=== PATIENT | male | born 1990 | race Caucasian/White ===

== ENCOUNTER 2017-02-22 05:39 | Emergency (ER) | payer MEDICAID ==
--- NOTE | 2017-02-22 06:01 | C.PDOC ---
History Of Present Illness 26M c/o "scratchy throat," cough, headache since yesterday. he took tylenol PM last night without relief. denies any etoh or drug use. no fever. Time Seen by Provider: 02/22/17 05:44 Chief Complaint (Nursing): Headache Past Medical History Vital Signs: Last Vital Signs Temp 98.5 F 02/22/17 07:00 Pulse 119 H 02/22/17 07:00 Resp 18 02/22/17 07:00 BP 140/91 H 02/22/17 07:00 Pulse Ox 99 02/22/17 07:00 - Medical History PMH: Denies: Diabetes, Hepatitis, HIV, HTN, Seizures, Sexually Transmitted Disease Family History: States: Other Other Family History: nc - Social History Hx Tobacco Use: Yes Hx Alcohol Use: No Hx Substance Use: No - Immunization History Hx Tetanus Toxoid Vaccination: No Hx Influenza Vaccination: No Hx Pneumococcal Vaccination: No Review Of Systems Constitutional: Negative for: Fever Cardiovascular: Negative for: Chest Pain Respiratory: Positive for: Cough. Negative for: Shortness of Breath, Hemoptysis Gastrointestinal: Negative for: Nausea, Vomiting, Abdominal Pain Neurological: Positive for: Headache. Negative for: Weakness, Numbness, Altered Mental Status Physical Exam - Physical Exam Appears: Well, Non-toxic, No Acute Distress Skin: Warm, Dry, No Diaphoretic, No Pale, No Jaundice Head: Atraumatic Eye(s): bilateral: PERRL Nose: No Epistaxis Oral Mucosa: Moist Tongue: No Swelling, No Lesions Lips: No Swelling, No Lesions Throat: Erythema, No Exudate, No Drooling, Other (uvula midline. ) Neck: Normal ROM, Supple Cardiovascular: Rhythm Regular Respiratory: Normal Breath Sounds, No Decreased Breath Sounds, No Accessory Muscle Use, No Rales, No Rhonchi, No Stridor, No Wheezing Neurological/Psych: Oriented x3, Normal Cranial Nerves, Normal Motor, Normal Sensation, Other (no focal deficits) Gait: Steady ED Course And Treatment O2 Sat by Pulse Oximetry: 97 Medical Decision Making Medical Decision Making: suggested cxr for cough but pt refused. he also refused the rapid strep. 655am IVF not yet finished. pt requesting to be discharged. Disposition - Disposition Referrals: José Luis Weller MD [Medical Doctor] - Disposition: HOME/ ROUTINE Disposition Time: 06:55 Condition: SERIOUS Prescriptions: Naproxen [Naprosyn] 500 mg PO Q12H PRN #10 tablet PRN Reason: Pain, Moderate (4-7) Forms: General Discharge Instructions - Clinical Impression Clinical Impression: Viral syndrome
[2017-02-22] MEDS ORDERED: DiphenhydrAMINE 50 mg/ml Inj IVP STA (06:26)
[2017-02-22] MEDS ORDERED: Sodium Chloride 0.9% 1,000 ML IV ONE (06:26)
[2017-02-22] MEDS ORDERED: DiphenhydrAMINE 50 mg/ml Inj ONE ×2 (06:38→06:40)
[2017-02-22 07:01] VITALS: BP 140/91; PULSE 119; RESP 18; TEMP 98.5
[2017-02-23 18:47] VITALS: O2SAT 97
== END 2017-02-22 07:15 | disposition home or self-care (01) ==
LOC: C.ER 05:39
DX: B34.9 Viral infection, unspecified (principal)
CPT/HCPCS: 96374; 96375; 99284; J1200; J1885; J2765; J7040

== ENCOUNTER 2017-03-06 08:23 | Emergency (ER) | payer MEDICAID ==
[2017-03-06 08:27] VITALS: O2SAT 97
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
[2017-03-06 10:27] VITALS: BP 125/82; PULSE 87; RESP 16; TEMP 98.2
== END 2017-03-06 10:59 | disposition home or self-care (01) ==
LOC: C.ER 08:23
DX: M54.9 Dorsalgia, unspecified (principal); G89.29 Other chronic pain
CPT/HCPCS: 96372; 99284; J1885

== ENCOUNTER 2017-06-26 18:59 | Emergency (ER) | payer MEDICAID ==
[2017-06-26 19:45] VITALS: RESP 24; TEMP 97.6; O2SAT 100
[2017-06-26 20:01] VITALS: BP 156/97; PULSE 122
== END 2017-06-26 20:01 | disposition left against medical advice (07) ==
LOC: C.ER 18:59
DX: Z02.89 Encounter for other administrative examinations (principal); R42 Dizziness and giddiness

== ENCOUNTER 2017-09-06 05:28 | Emergency (ER) | payer MEDICAID ==
[2017-09-06] MEDS ORDERED: Tetanus/Diphtheria Toxoids 0.5 ml Syringe IM ONE (06:21)
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
[2017-09-06 06:44] VITALS: BP 138/70; PULSE 90; RESP 20; TEMP 98
[2017-09-06 06:51] VITALS: O2SAT 98
--- NOTE | 2017-09-06 09:38 | RAD ---
PROCEDURE: Right Thumb radiographs. HISTORY: pain , swelling to right thumb COMPARISON: None. TECHNIQUE: AP radiograph of the right hand, as well as spot oblique and lateral images of thumb were obtained. FINDINGS: RIGHT THUMB: No acute fracture. JOINTS: Unremarkable. SOFT TISSUES: Soft-tissue swelling adjacent to 1st digit. OTHER FINDINGS: None. IMPRESSION: No demonstrated acute fracture or dislocation.
== END 2017-09-06 06:44 | disposition home or self-care (01) ==
LOC: SUPCPDRO 05:28 → C.ER 05:28
DX: S60.221A Contusion of right hand, initial encounter (principal); S60.511A Abrasion of right hand, initial encounter; Y04.0XXA Assault by unarmed brawl or fight, initial encounter

== ENCOUNTER 2017-09-11 22:59 | Emergency (ER) | payer MEDICAID, OTHER ==
[2017-09-11 23:12] VITALS: BP 118/76; PULSE 102; RESP 20; TEMP 97.9; O2SAT 99
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
== END 2017-09-11 23:56 | disposition home or self-care (01) ==
LOC: C.ER 22:59
DX: T14.8XXA Other injury of unspecified body region, initial encounter (principal); V49.9XXA Car occupant (driver) (passenger) injured in unspecified traffic accident, initial encounter

== ENCOUNTER 2018-06-22 00:31 | Emergency (ER) | payer MEDICAID ==
[2018-06-22 00:44] VITALS: RESP 20
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
[2018-06-22 02:24] VITALS: BP 140/82; PULSE 85; TEMP 98.5
[2018-06-22 02:44] VITALS: O2SAT 97
== END 2018-06-22 02:58 | disposition home or self-care (01) ==
LOC: C.ER 00:31
DX: F41.9 Anxiety disorder, unspecified (principal); G47.00 Insomnia, unspecified

== ENCOUNTER 2018-06-25 23:08 | Emergency (ER) | payer MEDICAID | END 2018-06-26 00:06 | disposition left against medical advice (07) | LOC: C.ER 23:08 | DX: Z02.89 Encounter for other administrative examinations (principal); Z00.00 Encounter for general adult medical examination without abnormal findings ==

== ENCOUNTER 2018-06-27 23:55 | Emergency (ER) | payer MEDICAID ==
[2018-06-28] MEDS ORDERED: Sodium Chloride 0.9% 1,000 ML IV ONE (00:48)
--- NOTE | 2018-06-28 00:48 | C.PDOC ---
History Of Present Illness 27 year old male presents to the ED c/o feeling slight dizziness, cough, not feeling well that started today [employer]. Patient states he was at a store and started feeling hot then cold. Patient denies fever, chills, nausea, vomit, abdominal pain, headache, visual changes, injury, fall, trauma. Time Seen by Provider: 06/28/18 00:39 Chief Complaint (Nursing): Dizziness/Lightheaded History Per: Patient History/Exam Limitations: no limitations Onset/Duration Of Symptoms: Hrs Associated Symptoms Preceding Syncopal Episode: No Predromal Symptoms (Sudden Onset) Seizure Or Post-ictal Symptoms: None Fall Associated With With Symptoms: No Severity: None Recent travel outside of the [place]: No Additional History Per: Patient Past Medical History Reviewed: Historical Data, Nursing Documentation, Vital Signs Vital Signs: Last Vital Signs Temp 98.5 F 06/28/18 00:03 Pulse 96 H 06/28/18 00:03 Resp 18 06/28/18 00:03 BP 145/85 06/28/18 00:03 Pulse Ox 99 06/28/18 00:03 - Medical History PMH: Anxiety, Back Problems (chronic back pain) Denies: Diabetes, Hepatitis, HIV, HTN, Chronic Kidney Disease, Seizures, Sexually Transmitted Disease Surgical History: No Surg Hx Family History: States: Unknown Family Hx - Social History Hx Tobacco Use: Yes Hx Alcohol Use: No Hx Substance Use: No - Immunization History Hx Tetanus Toxoid Vaccination: No Hx Influenza Vaccination: No Hx Pneumococcal Vaccination: No Review Of Systems Constitutional: Positive for: Malaise. Negative for: Fever, Chills Eyes: Negative for: Vision Change Cardiovascular: Negative for: Chest Pain Respiratory: Negative for: Cough, Shortness of Breath Gastrointestinal: Negative for: Nausea, Vomiting, Abdominal Pain Skin: Negative for: Rash Neurological: Positive for: Dizziness. Negative for: Weakness, Numbness, Headache Physical Exam - Physical Exam Appears: Non-toxic, No Acute Distress Skin: Warm, Dry Head: Normacephalic Eye(s): bilateral: Normal Inspection Ear(s): Bilateral: Normal Oral Mucosa: Moist Throat: No Erythema, No Exudate Neck: Supple Chest: Symmetrical Cardiovascular: Rhythm Regular Respiratory: No Rales, No Rhonchi, No Wheezing Gastrointestinal/Abdominal: Soft, No Tenderness, No Guarding, No Rebound Extremity: Bilateral: Atraumatic, Normal Color And Temperature, Normal ROM Neurological/Psych: Oriented x3, Normal Speech, Normal Cognition Gait: Steady ED Course And Treatment - Laboratory Results Result Diagrams: 06/28/18 00:57 06/28/18 00:57 O2 Sat by Pulse Oximetry: 99 (On RA) Pulse Ox Interpretation: Normal - Radiology CXR: Interpreted by Me, Viewed By Me CXR Interpretation: No: Infiltrates, Fracture, Pnemothorax Progress Note: Plan: - Labs. - CXR. - IV fluids. - Influenza A B. pt refuses to give urine. Reevaluation Time: 02:28 Reassessment Condition: Improved Medical Decision Making Medical Decision Making: Upon provider reevaluation patient is feeling better, is medically stable, and requires no further treatment in the ED at this time. Patient will be discharged home . Counseling was provided and all questions were answered regarding diagn osis and need for follow up with the referred clinic. There is agreement to discharge plan. Return if symptoms persist or worsen. Disposition Counseled Patient/Family Regarding: Studies Performed, Diagnosis, Need For Followup - Disposition Referrals: at [facility] [Outside] Disposition: HOME/ ROUTINE Disposition Time: 00:48 Condition: FAIR Instructions: Viral Upper Respiratory Infection, Adult (DC) Forms: [employer] (British) - Clinical Impression Clinical Impression: URI (upper respiratory infection) - Scribe Statement The provider has reviewed the documentation as recorded by the Scribe Harpreet Hernández All medical record entries made by the Scribe were at my direction and per sonally dictated by me. I have reviewed the chart and agree that the record accurately reflects my personal performance of the history, physical exam, medical decision making, and the department course for this patient. I have also personally directed, reviewed, and agree with the discharge instructions and disposition.
[2018-06-28 01:00] LABS: BASO # 0.1 K/uL (0.0-0.2); BASO % 0.8 % (0.0-2.0); EOS # 0.1 K/uL (0.0-0.7); EOS % 1.9 % (0.0-4.0); HEMOGLOBIN 12.5 g/dL (12.0-18.0); LYMPH # 1.5 K/uL (1.0-4.3); LYMPH % 20.6 % (20.0-40.0); MEAN CELL VOLUME 93.1 fL (80.0-94.0); MEAN CORPUSCULAR HEMOGLOBIN 32.2 pg (27.0-31.0); MEAN CORPUSCULAR HGB CONC 34.6 g/dL (33.0-37.0); MEAN PLATELET VOLUME 9.2 fL (7.2-11.7); MONO # 0.5 K/uL (0.0-0.8); MONO % 7.5 % (0.0-10.0); NEUT % 69.2 % (50.0-75.0); RBC 3.87 Mil/uL (4.40-5.90); RED CELL DISTRIBUTION WIDTH 12.6 % (11.5-14.5); WHITE BLOOD COUNT 7.3 K/uL (4.8-10.8)
[2018-06-28 01:18] LABS: BLOOD UREA NITROGEN 16 mg/dL (9-20); CALCIUM 9.6 mg/dl (8.6-10.4); GFR NON-AFRICAN AMERICAN > 60
[2018-06-28 01:34] VITALS: BP 139/81; PULSE 88; RESP 17; TEMP 98.2
[2018-06-28 02:32] VITALS: O2SAT 99
--- NOTE | 2018-06-28 08:21 | RAD ---
Date of service: 06/28/2018 HISTORY: Shortness of breath COMPARISON: None available. FINDINGS: LUNGS: No active pulmonary disease. PLEURA: No significant pleural effusion identified, no pneumothorax apparent. CARDIOVASCULAR: No aortic atherosclerotic calcification present. Normal cardiac size. No pulmonary vascular congestion. OSSEOUS STRUCTURES: No significant abnormalities. VISUALIZED UPPER ABDOMEN: Normal. OTHER FINDINGS: None. IMPRESSION: No active disease.
== END 2018-06-28 02:38 | disposition home or self-care (01) ==
LOC: C.ER 23:55
DX: J06.9 Acute upper respiratory infection, unspecified (principal); F17.210 Nicotine dependence, cigarettes, uncomplicated
CPT/HCPCS: 71045; 80048; 85025; 87804; 96360; 99285; J7030

== ENCOUNTER 2018-06-29 15:52 | Emergency (ER) | payer MEDICAID ==
[2018-06-29 16:02] VITALS: BP 131/87; PULSE 90; RESP 20; TEMP 98.7; O2SAT 99
--- NOTE | 2018-06-29 16:30 | C.PDOC ---
History Of Present Illness 27 yo male with h/o anxiety and chronic back pain comes to ER requests physical therapy referral. He states that he has been having back pain which kept him up last night. Admits to feeling anxious, notes he has had a h/o this in the past and it feels no different. States he takes Benadryl to help him sleep. No changes in his back pain, no new trauma. H/o herniated discs. Denies incontinence, abdominal pain, urinary changes, or changes in sensation. Reports he does not want a work up or to be seen by crisis mental health therapist, he wants a referral for PT only. No SI or HI. Time Seen by Provider: 06/29/18 16:15 Chief Complaint (Nursing): Psychiatric Evaluation History Per: Patient History/Exam Limitations: no limitations Onset/Duration Of Symptoms: Hrs (last night ) Associated Symptoms: Anxiety Past Medical History Vital Signs: Last Vital Signs Temp 98.7 F 06/29/18 15:59 Pulse 90 06/29/18 15:59 Resp 20 06/29/18 15:59 BP 131/87 06/29/18 15:59 Pulse Ox 99 06/29/18 15:59 - Medical History PMH: Anxiety, Back Problems (chronic back pain) Denies: Diabetes, Hepatitis, HIV, HTN, Chronic Kidney Disease, Seizures, Sexually Transmitted Disease Family History: States: Unknown Family Hx - Social History Hx Tobacco Use: Yes Hx Alcohol Use: No Hx Substance Use: No - Immunization History Hx Tetanus Toxoid Vaccination: No Hx Influenza Vaccination: No Hx Pneumococcal Vaccination: No Review Of Systems Except As Marked, All Systems Reviewed And Found Negative. Musculoskeletal: Positive for: Back Pain Psych: Positive for: Anxiety Physical Exam - Physical Exam Appears: Well, Non-toxic, No Acute Distress Skin: Normal Color, Warm, Dry Head: Atraumatic, Normacephalic Eye(s): bilateral: Normal Inspection, EOMI Nose: Normal Throat: Normal Neck: Normal Chest: Symmetrical Cardiovascular: Rhythm Regular Respiratory: Normal Breath Sounds Gastrointestinal/Abdominal: Normal Exam, Soft, No Tenderness Back: Normal Inspection, No CVA Tenderness, No Vertebral Tenderness, Paraspinal Tenderness (? lower paralumbar tenderness) Extremity: Normal ROM Neurological/Psych: Oriented x3, Normal Speech (pt is guarded) ED Course And Treatment O2 Sat by Pulse Oximetry: 99 Progress Note: Reviewed pt h/o, h/o polystubstance abuse. H/o similar visits in the past. Offered further work up with crisis mental health therapist. Pt declined. Juany RN at bedside. Offered psychiatric /detox services. Pt declined. No SI or HI. Pt was instructed to follow up PMD for PT referral. Disposition - Disposition Referrals: Alisa Perry MD [Medical Doctor] - [facility] [Outside] Disposition: HOME/ ROUTINE Disposition Time: 16:37 Condition: STABLE Additional Instructions: Follow up with the [facility] for your anxiety and insomnia. Also follow up with your primary doctor for physical therapy referral. Return to ER if symptoms persist or worsen. Prescriptions: Physical Therapy 0 % .ROUTE QWK 1 Days Instructions: Low Back Pain (DC) Forms: [facility] (Portuguese) - Clinical Impression Clinical Impression: Chronic back pain, Anxiety
== END 2018-06-29 16:45 | disposition home or self-care (01) ==
LOC: C.ER 15:52
DX: M54.9 Dorsalgia, unspecified (principal); G89.29 Other chronic pain; F41.9 Anxiety disorder, unspecified

== ENCOUNTER 2018-08-11 02:10 | Emergency (ER) | payer MEDICAID ==
--- NOTE | 2018-08-11 03:10 | C.PDOC ---
History Of Present Illness 28 year old male presents to the ER with a complaint of tingling and numbness to the right hand and wrist. Patient states he must have slept on his right arm yesterday and cannot fully feel hand today. Denies weakness or trauma. Time Seen by Provider: 08/11/18 02:39 Chief Complaint (Nursing): Upper Extremity Problem/Injury History Per: Patient History/Exam Limitations: no limitations Onset/Duration Of Symptoms: Days (Yesterday) Current Symptoms Are (Timing): Still Present Recent travel outside of the [place]: No Past Medical History Reviewed: Historical Data, Nursing Documentation, Vital Signs Vital Signs: Last Vital Signs Temp 98.4 F 08/11/18 02:28 Pulse 88 08/11/18 02:28 Resp 14 08/11/18 02:28 BP 124/75 08/11/18 02:28 Pulse Ox - Medical History PMH: Anxiety, Back Problems (chronic back pain) Denies: Diabetes, Hepatitis, HIV, HTN, Chronic Kidney Disease, Seizures, Sexually Transmitted Disease Family History: States: Unknown Family Hx - Social History Hx Tobacco Use: Yes Hx Alcohol Use: No Hx Substance Use: No - Immunization History Hx Tetanus Toxoid Vaccination: No Hx Influenza Vaccination: No Hx Pneumococcal Vaccination: No Review Of Systems Neurological: Positive for: Numbness (w/ tingling of right hand and wrist). Negative for: Weakness Physical Exam - Physical Exam Appears: Non-toxic Skin: Normal Color, Warm, Dry Head: Atraumatic, Normacephalic Eye(s): bilateral: EOMI, Other (Pin point pupils) Extremity: Normal ROM (x4), No Tenderness, Capillary Refill (<2 seconds), No Deformity, No Swelling, No Other (Ecchymosis, erythema, warmth ) Extremity: Bilateral: Atraumatic Pulses: Left Radial: Normal, Right Radial: Normal Neurological/Psych: Oriented x3, Normal Speech, Normal Motor, Normal Sensation ED Course And Treatment Progress Note: Tylenol administered. Patient is resting comfortably in no acute distress, vitals are stable, patient reassured and discharged home with instructions to follow up with PMD. Disposition Counseled Patient/Family Regarding: Diagnosis, Need For Followup, Rx Given - Disposition Referrals: [facility] [Outside] Disposition: HOME/ ROUTINE Disposition Time: 03:08 Condition: STABLE Additional Instructions: Please follow up with your doctor or in clinic Return to ER if worse Instructions: Paresthesias (DC) Forms: [facility] (Czech) - Clinical Impression Clinical Impression: Right hand paresthesia - PA / [employer] / Resident Statement MD/DO has reviewed & agrees with the documentation as recorded. - Scribe Statement The provider has reviewed the documentation as recorded by the Scribe Suarj Calle All medical record entries made by the Jaleesaibbernarda were at my direction and personally dictated by me. I have reviewed the chart and agree that the record accurately reflects my personal performance of the history, physical exam, medical decision making, and the department course for this patient. I have also personally directed, reviewed, and agree with the discharge instructions and disposition.
[2018-08-11 03:16] VITALS: BP 121/76; PULSE 81; RESP 18; TEMP 98; O2SAT 97
== END 2018-08-11 03:23 | disposition home or self-care (01) ==
LOC: C.ER 02:10
DX: R20.2 Paresthesia of skin (principal)

== ENCOUNTER 2018-09-08 08:18 | Emergency (ER) | payer MEDICAID ==
[2018-09-08 08:33] VITALS: BP 134/84; PULSE 102; RESP 18; TEMP 98.8; O2SAT 97
--- NOTE | 2018-09-08 09:12 | C.PDOC ---
History Of Present Illness 28 y/o male pt presents to the ER c/o back pain for x3 days. Associated sx includes numbness, tingling, mild frontal headache and pain radiating down the right leg. Pt reports took two tabs of ibuprofen last night with no relief. Pt denies dysuria, hematuria, abdominal pain and fever. Time Seen by Provider: 09/08/18 09:01 Chief Complaint (Nursing): Back Pain History Per: Patient History/Exam Limitations: no limitations Onset/Duration Of Symptoms: Days (x3) Current Symptoms Are (Timing): Still Present Past Medical History Reviewed: Historical Data, Nursing Documentation, Vital Signs Vital Signs: Last Vital Signs Temp 98.8 F 09/08/18 08:30 Pulse 102 H 09/08/18 08:30 Resp 18 09/08/18 08:30 BP 134/84 09/08/18 08:30 Pulse Ox 97 09/08/18 08:30 - Medical History PMH: Anxiety, Back Problems (chronic back pain) Family History: States: Unknown Family Hx - Social History Hx Tobacco Use: Yes Hx Alcohol Use: No Hx Substance Use: No - Immunization History Hx Tetanus Toxoid Vaccination: No Hx Influenza Vaccination: No Hx Pneumococcal Vaccination: No Review Of Systems Constitutional: Negative for: Fever Gastrointestinal: Negative for: Abdominal Pain Genitourinary: Negative for: Dysuria, Hematuria Musculoskeletal: Positive for: Back Pain, Leg Pain (rigth leg; pain radiated from back pain) Neurological: Positive for: Numbness, Headache (mild frontal ), Other (tingling ) Physical Exam - Physical Exam Appears: Non-toxic, In Acute Distress (mild discomfort ) Skin: Warm, Dry Head: Normacephalic Eye(s): bilateral: Normal Inspection, EOMI Chest: Symmetrical Cardiovascular: Rhythm Regular Respiratory: Normal Breath Sounds, No Rales, No Rhonchi, No Wheezing Gastrointestinal/Abdominal: Soft, No Tenderness Back: No Vertebral Tenderness, Paraspinal Tenderness (right ), No Other (midline tenderness ) Extremity: Normal ROM, No Tenderness, No Pedal Edema, No Calf Tenderness, Capillary Refill (<2 sec), No Deformity, No Swelling Pulses: Right Dorsalis Pedis: Normal Neurological/Psych: Oriented x3, Normal Speech, Normal Cognition, Normal Motor, Normal Sensation ED Course And Treatment O2 Sat by Pulse Oximetry: 97 (RA) Pulse Ox Interpretation: Normal Progress Note: Plans: -- toradol. -- flexeril. Reassess: Patient is resting comfortably, is no longer having back pain, no fever, no bony tenderness, no numbness, no weakness, or abdominal pain. Patient is ambulatory in the emergency department with no signs of discomfort. Patient was given prescription to take home and was advised to follow up with their physician in 1-2 days. Disposition Counseled Patient/Family Regarding: Diagnosis, Need For Followup, Rx Given - Disposition Referrals: [facility] [Outside] Disposition: HOME/ ROUTINE Disposition Time: 09:20 Condition: STABLE Additional Instructions: FOLLOW UP WITH YOUR DOCTOR/CLINIC IN 1-2 DAYS USE MEDICATIONS NEEDED RETURN TO ER IF SYMPTOMS WORSEN Prescriptions: Cyclobenzaprine [Flexeril] 10 mg PO BID PRN #15 tab PRN Reason: Muscle Spasm Naproxen 375 mg PO BID PRN #20 tablet PRN Reason: pain Instructions: Low Back Pain (DC), Radiculopathy (DC) Forms: [employer] (Wolof) Print Language: SYRIAN - POA Present On Arrival: None - Clinical Impression Clinical Impression: Low back pain, Lumbar radiculopathy - Scribe Statement The provider has reviewed the documentation as recorded by the Jose F Pruitt Do Provider Attestation: All medical record entries made by the Jaleesaibbernarda were at my direction and personally dictated by me. I have reviewed the chart and agree that the record accurately reflects my personal performance of the history, physical exam, medical decision making, and the department course for this patient. I have also personally directed, reviewed, and agree with the discharge instructions and disposition.
== END 2018-09-08 09:21 | disposition home or self-care (01) ==
LOC: C.ER 08:18
DX: M54.16 Radiculopathy, lumbar region (principal); M54.5 Low back pain
CPT/HCPCS: 96372; 99283; J1885